=== PATIENT | male | born 1995 | race Caucasian/White ===

== ENCOUNTER 2017-05-21 19:04 | Emergency (ER) | payer MEDICARE, OTHER ==
[~2017-05-21] VITALS: Ht 165.1 cm; Wt 57.6 kg
[~2017-05-21 19:04] MED LIST: ALBU90OI61 INH; APTIOM400 MG PO; APTIOM600 MG PO; Banzel400 MG PO; CARNITOR PO; DIAZ1KIT4 PR; Diazepam5 MG PO; ERYT.5TO; FERR325 PO; IRON 100 PLUS1 EACH PO; LAMO100 PO; Lamictal200 MG PO; METO10SY PO; MOMENI; NASACORT10.8 ML; ONDA4 PO; POTCHL20ER PO; PREG100 PO; PREG25 PO; PREG75 PO; PROM25 PO; Pseudoephedrine30 MG PO; SEPTRA; ZYRTEC10 M1 PO; Zofran4 MG PO
[2017-05-21] MEDS ORDERED: DOXE10 PO (20:13)
[2017-05-21] MEDS ORDERED: ALPR1 PO (20:13)
[2017-05-21] MEDS ORDERED: LIDOCAINE 2% (20:14)
[2017-05-21 20:32] LABS: Hematocrit 44.1 % (37.0-53.0); Hemoglobin 14.9 g/dL (13.5-17.5); Mean Corpuscular HGB Conc 33.8 g/dL (31.5-36.5); Mean Corpuscular Volume 95 fL (80-100); Mean Platelet Volume 9.8 fL (9.1-12.4); Platelet Count 366 K/mm3 (150-400); RDW Coefficient Variation 13.3 % (11.7-14.2); RDW Standard Deviation 46.7 fL (35.1-46.3); Red Blood Cell Count 4.66 M/mm3 (4.30-5.90); White Blood Cell Count 9.78 K/mm3 (4.00-11.30)
[2017-05-21 20:39] LABS: Anion Gap 16 mmol/L (6-16); Blood Urea Nitrogen 14 mg/dL (8-24); Bun/Creatinine Ratio 31.9 (12.0-20.0); CO2, Blood 18 mmol/L (21-32); Calcium, Blood 8.7 mg/dL (8.5-10.1); Chloride, Blood 106 mmol/L (98-108); Creatinine, Blood 0.44 mg/dL (0.60-1.20); Glomerular Filtration Rate >60 (60-); Glucose, Blood 78 mg/dL (70-99); Potassium, Blood 3.7 mmol/L (3.5-5.5); Sodium, Blood 140 mmol/L (136-145)
[2017-05-21] MEDS ORDERED: Percocet 5-3251 EACH PO (23:09)
== END 2017-05-21 23:18 | disposition home or self-care (01) ==
LOC: ER 19:04
PROVIDERS: Emergency Medicine
DX: G40.812 Lennox-Gastaut syndrome, not intractable, without status epilepticus (principal); D18.09 Hemangioma of other sites
CPT/HCPCS: 36415; 70470; 80048; 85027; 96374; 99284; J2250; Q9967

== ENCOUNTER → 2020-02-17 | Outpatient (CLI) | payer MEDICARE, OTHER ==
[~2020-02-17] MED LIST changes: +ALPR1 PO; +DOXE10 PO; +LIDOCAINE 2%; +Percocet 5-3251 EACH PO
[2020-02-17 17:27] LABS: BASOPHILS ABSOLUTE AUTO 0.09 K/mm3 (0.00-0.23); BASOPHILS PERCENT AUTO 1 % (0-2); EOSINOPHILS ABSOLUTE AUTO 0.34 K/mm3 (0.00-0.68); EOSINOPHILS PERCENT AUTO 4 % (0-6); Hematocrit 46.8 % (37.0-53.0); Hemoglobin 15.6 g/dL (13.5-17.5); IMMATURE GRAN ABSOLUTE AUTO 0.03 K/mm3 (0.00-0.10); IMMATURE GRAN PERCENT AUTO 0 % (0-1); LYMPHOCYTES ABSOLUTE AUTO 3.04 K/mm3 (0.84-5.20); LYMPHOCYTES PERCENT AUTO 36 % (21-46); MONOCYTES PERCENT AUTO 8 % (4-13); Mean Corpuscular HGB Conc 33.3 g/dL (31.5-36.5); Mean Corpuscular Volume 90 fL (80-100); Mean Platelet Volume 10.3 fL (9.1-12.4); NEUTROPHILS ABSOLUTE AUTO 4.21 K/mm3 (1.96-9.15); NEUTROPHILS PERCENT AUTO 50 % (41-73); Platelet Count 386 K/mm3 (150-400); RDW Coefficient Variation 20.2 % (11.7-14.2); White Blood Cell Count 8.41 K/mm3 (4.00-11.30)
[2020-02-17 17:43] LABS: Alanine Aminotransfer (ALT/SGP 17 U/L (12-78); Albumin, Blood 4.6 g/dL (3.4-5.0); Albumin/Globulin Ratio 1.5 (0.8-1.8); Alk Phos 154 U/L (40-126); Anion Gap 16 mmol/L (6-16); Aspartate Aminotrans (AST/SGOT 14 U/L (12-37); Bilirubin, Total 0.3 mg/dL (0.1-1.0); Blood Urea Nitrogen 34 mg/dL (8-24); Bun/Creatinine Ratio 58.6 (12.0-20.0); CO2, Blood 22 mmol/L (21-32); Chloride, Blood 108 mmol/L (98-108); Creatinine, Blood 0.58 mg/dL (0.60-1.20); Globulin, Blood 3.1 g/dL (2.2-4.0); Glomerular Filtration Rate >60 (60-); Glucose, Blood 113 mg/dL (70-99); Potassium, Blood 3.9 mmol/L (3.5-5.5); Sodium, Blood 146 mmol/L (136-145); Total Protein, Blood 7.7 g/dL (6.4-8.2)
== END ==
LOC: LAB EV 17:14 → LAB SHORT 17:14
PROVIDERS: Physician Assistant
DX: D64.9 Anemia, unspecified (principal); R74.8 Abnormal levels of other serum enzymes
CPT/HCPCS: 36415; 80053; 85025

== ENCOUNTER 2021-08-12 17:17 | Emergency (ER) | payer MEDICARE, OTHER ==
[~2021-08-12] VITALS: Ht 157.5 cm; Wt 52.2 kg
== END 2021-08-12 19:23 | disposition home or self-care (01) ==
LOC: ER 17:17
DX: R11.2 Nausea with vomiting, unspecified (principal); R04.2 Hemoptysis; F79 Unspecified intellectual disabilities; R62.50 Unspecified lack of expected normal physiological development in childhood; Z86.59 Personal history of other mental and behavioral disorders
CPT/HCPCS: 71045; 74018; A9270